=== PATIENT | female | born 1995 | race Caucasian/White ===

== ENCOUNTER 2018-04-20 16:06 | Emergency (ER) | payer OTHER ==
[2018-04-20] MEDS: IBUPROFEN 600 MG TAB PO (17:10)
[2018-04-20] MEDS: AMOXICILLIN 500 MG CAP PO (17:10)
[2018-04-20] MEDS: ACETAMINOPHEN 500 MG TAB PO (17:10)
[2018-04-20] MEDS: CEFTRIAXONE 250 MG INJ IM (17:27)
[2018-04-20] MEDS: AZITHROMYCIN 250 MG TAB PO (17:27)
[2018-04-20 17:43] LABS: URINE PH (Dip) POC 6.5 (5.0-8.5)
[2018-04-20 17:43] LABS: URINE BLOOD (Dip) POC Negative (NEGATIVE); URINE GLUCOSE (Dip) POC Negative (NEGATIVE); URINE KETONES (Dip) POC Trace (NEGATIVE); URINE LEUKOCYTE EST (Dip) POC Negative (NEGATIVE); URINE NITRITE (Dip) POC Negative (NEGATIVE); URINE TOTAL PROTEIN POC Trace (NEGATIVE)
== END 2018-04-20 17:45 | disposition home or self-care (01) ==
LOC: FTE 16:06
DX: J02.0 Streptococcal pharyngitis (principal); R50.9 Fever, unspecified; Z20.2 Contact with and (suspected) exposure to infections with a predominantly sexual mode of transmission
CPT/HCPCS: 81003; 87086; 87591; 96372; 99284-25

== ENCOUNTER 2018-04-25 13:44 | Emergency (ER) | payer OTHER ==
[2018-04-25] MEDS: DEXAMETHASONE 10 MG/ML 1 ML INJ IV (14:39)
[2018-04-25] MEDS: SOD CHLORIDE 0.9% 1,000 ML IV (14:39)
[2018-04-25] MEDS: KETOROLAC 30 MG INJ IV (14:43)
[2018-04-25 15:14] LABS: MONOTEST Negative (NEG)
[2018-04-25 15:44] LABS: ADD UMIC NO; UR ASCORBIC ACID NEGATIVE (NEGATIVE); UR BILIRUBIN (Dip) NEGATIVE (NEGATIVE); UR BLOOD (Dip) NEGATIVE (NEGATIVE); UR CLARITY SLIGHTLY CLOUDY (CLEAR); UR COLOR YELLOW (YELLOW); UR GLUCOSE (Dip) NEGATIVE (NEGATIVE); UR KETONES (Dip) NEGATIVE (NEGATIVE); UR LEUKOCYTE ESTERASE (Dip) NEGATIVE Leu/ul (NEGATIVE); UR NITRITE (Dip) NEGATIVE (NEGATIVE); UR RBC 0 /HPF (0-5); UR SPECIFIC GRAVITY (Dip) 1.018 (1.003-1.030); UR SQUAMOUS EPITHELIAL CELL MODERATE /HPF (FEW); UR TOTAL PROTEIN (Dip) NEGATIVE (NEGATIVE); UR UROBILINOGEN (Dip) NEGATIVE (NEGATIVE); UR WBC 1 /HPF (0-5)
[2018-04-25] MEDS: CLINDAMYCIN 600 MG/D5W (PMX) 50 ML IVPB (15:51)
== END 2018-04-25 16:36 | disposition home or self-care (01) ==
LOC: FTE 13:44
DX: J02.9 Acute pharyngitis, unspecified (principal); F17.210 Nicotine dependence, cigarettes, uncomplicated
CPT/HCPCS: 81001; 81003; 81025; 86308; 87880; 96361; 96365; 96375; 99284-25

== ENCOUNTER 2018-07-18 14:42 | Emergency (ER) | payer OTHER ==
[2018-07-18] MEDS: ACETAMINOPHEN 500 MG TAB PO (15:39)
[2018-07-18 15:47] LABS: ADD MAN DIFF? NO
[2018-07-18] MEDS: SOD CHLORIDE 0.9% 1,500 ML IV (15:47)
[2018-07-18 15:51] LABS: BASOPHILS % 0.4 % (0.0-2.0); EOSINOPHILS # 0.2 10^3/ul (0.0-0.5); EOSINOPHILS % 2.3 % (0.0-7.0); HEMATOCRIT 36.5 % (37.0-47.0); HEMOGLOBIN 11.9 g/dl (12.0-16.0); LYMPHOCYTES % 26.6 % (15.0-51.0); MEAN CORPUSCULAR HEMOGLOBIN 29.8 pg (29.0-33.0); MEAN CORPUSCULAR HGB CONC 32.6 g/dl (32.0-37.0); MEAN CORPUSCULAR VOLUME 91.3 fl (82.0-101.0); MEAN PLATELET VOLUME 10.1 fl (7.4-10.4); MONOCYTE # 0.6 10^3/ul (0.3-0.9); MONOCYTES % 8.6 % (0.0-11.0); NEUTROPHIL # 4.6 10^3/ul (1.6-7.5); NEUTROPHILS % 61.7 % (39.0-77.0); PLATELET COUNT 328 10^3/UL (140-415); RED CELL DISTRIBUTION WIDTH 13.9 % (11.5-14.5)
[2018-07-18 15:51] LABS: WHITE BLOOD COUNT 7.4 10^3/ul (4.8-10.8)
[2018-07-18 15:54] LABS: ADD UMIC YES; UR ASCORBIC ACID NEGATIVE (NEGATIVE); UR BILIRUBIN (Dip) NEGATIVE (NEGATIVE); UR BLOOD (Dip) NEGATIVE (NEGATIVE); UR CLARITY SLIGHTLY CLOUDY (CLEAR); UR COLOR YELLOW (YELLOW); UR GLUCOSE (Dip) NEGATIVE (NEGATIVE); UR KETONES (Dip) NEGATIVE (NEGATIVE); UR LEUKOCYTE ESTERASE (Dip) TRACE Leu/ul (NEGATIVE); UR MUCUS FEW /HPF (NONE SEEN); UR NITRITE (Dip) NEGATIVE (NEGATIVE); UR RBC 2 /HPF (0-5); UR SPECIFIC GRAVITY (Dip) 1.021 (1.003-1.030); UR SQUAMOUS EPITHELIAL CELL FEW /HPF (FEW); UR TOTAL PROTEIN (Dip) NEGATIVE (NEGATIVE); UR UROBILINOGEN (Dip) NEGATIVE (NEGATIVE); UR WBC 9 /HPF (0-5)
[2018-07-18 16:08] LABS: ALANINE AMINOTRANSFERASE 25 IU/L (13-69); ALBUMIN/GLOBULIN RATIO 1.29; ALKALINE PHOSPHATASE 51 IU/L (42-121); ANION GAP 9 (5-13); ASPARTATE AMINO TRANSFERASE 21 IU/L (15-46); BILIRUBIN,INDIRECT 0.5 mg/dl (0-1.1); BILIRUBIN,TOTAL 0.5 mg/dl (0.2-1.3); BLOOD UREA NITROGEN 13 mg/dl (7-20); CALCIUM 9.3 mg/dl (8.4-10.2); CARBON DIOXIDE 26 mmol/L (21-31); CHLORIDE 103 mmol/L (97-110); CREATININE 0.49 mg/dl (0.44-1.00); Estimated GFR > 60 mL/min (>60); GLUCOSE 78 mg/dl (70-220); LIPASE 74 U/L (23-300); POTASSIUM 4.2 mmol/L (3.5-5.1); SODIUM 138 mmol/L (135-144); TOTAL PROTEIN 7.1 g/dl (6.1-8.1)
[2018-07-18] MEDS: METOCLOPRAMIDE 10 MG INJ IV (16:09)
[2018-07-18 16:59] LABS: LACTIC ACID 1.3 mmol/L (0.5-2.0)
[2018-07-18] MEDS: CEPHALEXIN 500 MG CAP PO (17:03)
== END 2018-07-18 17:10 | disposition home or self-care (01) ==
LOC: FTE 14:42
DX: O23.91 Unspecified genitourinary tract infection in pregnancy, first trimester (principal); Z3A.01 Less than 8 weeks gestation of pregnancy
CPT/HCPCS: 36415; 76801; 76817; 80053; 81001; 81025; 83605; 83690; 84702; 85025; 87086; 96361; 96374; 99285-25

== ENCOUNTER 2018-07-21 17:49 | Emergency (ER) | payer OTHER ==
[2018-07-21] MEDS ORDERED: AZITHROMYCIN 500 MG TAB PO (18:30)
== END 2018-07-21 21:40 | disposition left against medical advice (07) ==
LOC: FTE 17:49
DX: A74.9 Chlamydial infection, unspecified (principal)
CPT/HCPCS: 99282; Z7502

== ENCOUNTER 2018-11-11 21:38 | Inpatient (IN) | payer OTHER ==
[2018-11-11 22:40] LABS: ADD UMIC YES; UR ASCORBIC ACID NEGATIVE (NEGATIVE); UR BACTERIA FEW /HPF (NONE SEEN); UR BILIRUBIN (Dip) NEGATIVE (NEGATIVE); UR BLOOD (Dip) 1+ mg/dL (NEGATIVE); UR CLARITY CLOUDY (CLEAR); UR COLOR YELLOW (YELLOW); UR GLUCOSE (Dip) NEGATIVE (NEGATIVE); UR KETONES (Dip) 1+ mg/dL (NEGATIVE); UR LEUKOCYTE ESTERASE (Dip) 3+ Leu/ul (NEGATIVE); UR MUCUS FEW /HPF (NONE SEEN); UR NITRITE (Dip) POSITIVE (NEGATIVE); UR RBC 14 /HPF (0-5); UR SPECIFIC GRAVITY (Dip) 1.015 (1.003-1.030); UR SQUAMOUS EPITHELIAL CELL FEW /HPF (FEW); UR TOTAL PROTEIN (Dip) 2+ mg/dl (NEGATIVE); UR TRANSITIONAL EPI CELL FEW /HPF (NONE SEEN); UR UROBILINOGEN (Dip) NEGATIVE (NEGATIVE); UR WBC > 182 /HPF (0-5)
[2018-11-11 22:46] LABS: BARBITURATES Negative (NEGATIVE); BENZODIAZEPINES Negative (NEGATIVE); CANNABINOIDS Positive (NEGATIVE); COCAINE Negative (NEGATIVE); OPIATES Negative (NEGATIVE)
[2018-11-11 23:02] LABS: AMPHETAMINE/METHAMPHETAMINE Positive (NEGATIVE)
[2018-11-11] MEDS: SOD CHLORIDE 0.9% 1,000 ML IV (23:19)
[2018-11-11] MEDS: CEFTRIAXONE 1 GM/50 ML (PMX) 50 ML IVPB (23:28)
[2018-11-11 23:40] LABS: ADD MAN DIFF? NO
[2018-11-11 23:43] LABS: WHITE BLOOD COUNT 17.3 10^3/ul (4.8-10.8)
[2018-11-11 23:43] LABS: BASOPHILS % 0.2 % (0.0-2.0); EOSINOPHILS % 0.2 % (0.0-7.0); HEMATOCRIT 31.2 % (37.0-47.0); HEMOGLOBIN 10.5 g/dl (12.0-16.0); LYMPHOCYTES # 1.3 10^3/ul (0.8-2.9); LYMPHOCYTES % 7.7 % (15.0-51.0); MEAN CORPUSCULAR HEMOGLOBIN 32.3 pg (29.0-33.0); MEAN CORPUSCULAR HGB CONC 33.7 g/dl (32.0-37.0); MEAN PLATELET VOLUME 9.6 fl (7.4-10.4); MONOCYTE # 1.2 10^3/ul (0.3-0.9); NEUTROPHIL # 14.6 10^3/ul (1.6-7.5); NEUTROPHILS % 84.4 % (39.0-77.0); PLATELET COUNT 262 10^3/UL (140-415); RED BLOOD COUNT 3.25 10^6/ul (4.20-5.40); RED CELL DISTRIBUTION WIDTH 12.9 % (11.5-14.5)
[2018-11-12 00:02] LABS: ALANINE AMINOTRANSFERASE 18 IU/L (13-69); ALBUMIN 2.8 g/dl (3.3-4.9); ALBUMIN/GLOBULIN RATIO 0.84; ALKALINE PHOSPHATASE 146 IU/L (42-121); ANION GAP 2 (5-13); ASPARTATE AMINO TRANSFERASE 24 IU/L (15-46); BILIRUBIN,INDIRECT 0.6 mg/dl (0-1.1); BILIRUBIN,TOTAL 0.6 mg/dl (0.2-1.3); BLOOD UREA NITROGEN 6 mg/dl (7-20); CALCIUM 8.6 mg/dl (8.4-10.2); CARBON DIOXIDE 27 mmol/L (21-31); CHLORIDE 102 mmol/L (97-110); CREATININE 0.41 mg/dl (0.44-1.00); Estimated GFR > 60 mL/min (>60); GLUCOSE 113 mg/dl (70-220); POTASSIUM 3.3 mmol/L (3.5-5.1); SODIUM 131 mmol/L (135-144); TOTAL PROTEIN 6.1 g/dl (6.1-8.1)
[2018-11-12] MEDS ORDERED: ONDANSETRON 4 MG INJ IV (00:30)
[2018-11-12] MEDS: ACETAMINOPHEN 325 MG TAB PO ×3 (00:36→15:10)
[2018-11-12] MEDS ORDERED: ALBUTEROL HFA 8 GM INHALER INH (01:00)
[2018-11-12] MEDS: SOD CHLORIDE 0.9% 1,000 ML IV ×2 (07:39→08:45)
[2018-11-12] MEDS: PRENATAL VITAMIN PO (08:54)
[2018-11-12 11:17] LABS: ADD MAN DIFF? NO
[2018-11-12 11:26] LABS: WHITE BLOOD COUNT 15.5 10^3/ul (4.8-10.8)
[2018-11-12 11:26] LABS: BASOPHILS % 0.1 % (0.0-2.0); EOSINOPHILS % 0.2 % (0.0-7.0); HEMATOCRIT 31.1 % (37.0-47.0); HEMOGLOBIN 10.1 g/dl (12.0-16.0); LYMPHOCYTES # 1.2 10^3/ul (0.8-2.9); LYMPHOCYTES % 7.8 % (15.0-51.0); MEAN CORPUSCULAR HEMOGLOBIN 31.5 pg (29.0-33.0); MEAN CORPUSCULAR HGB CONC 32.5 g/dl (32.0-37.0); MEAN CORPUSCULAR VOLUME 96.9 fl (82.0-101.0); MEAN PLATELET VOLUME 9.3 fl (7.4-10.4); MONOCYTE # 0.8 10^3/ul (0.3-0.9); MONOCYTES % 4.9 % (0.0-11.0); NEUTROPHIL # 13.4 10^3/ul (1.6-7.5); NEUTROPHILS % 86.4 % (39.0-77.0); PLATELET COUNT 249 10^3/UL (140-415); RED BLOOD COUNT 3.21 10^6/ul (4.20-5.40)
[2018-11-12 11:41] LABS: IRON 13 ug/dl (35-150)
[2018-11-12 11:51] LABS: % IRON SATURATION 4 % SAT (22-52); TOTAL IRON BINDING CAPACITY 324 ug/dl (241-421)
[2018-11-12] MEDS: POTASSIUM CHLORIDE (SR) 20 MEQ TAB PO (12:41)
[2018-11-13] MEDS: CEFTRIAXONE 1 GM/50 ML (PMX) 50 ML IVPB (00:08)
[2018-11-13] MEDS: SOD CHLORIDE 0.9% 1,000 ML IV ×4 (00:08→17:22)
[2018-11-13 05:54] LABS: ADD MAN DIFF? NO
[2018-11-13 06:36] LABS: WHITE BLOOD COUNT 14.1 10^3/ul (4.8-10.8)
[2018-11-13 06:36] LABS: BASOPHILS % 0.2 % (0.0-2.0); EOSINOPHILS # 0.1 10^3/ul (0.0-0.5); EOSINOPHILS % 0.8 % (0.0-7.0); HEMATOCRIT 31.1 % (37.0-47.0); HEMOGLOBIN 10.2 g/dl (12.0-16.0); LYMPHOCYTES # 1.7 10^3/ul (0.8-2.9); LYMPHOCYTES % 11.9 % (15.0-51.0); MEAN CORPUSCULAR HEMOGLOBIN 31.9 pg (29.0-33.0); MEAN CORPUSCULAR HGB CONC 32.8 g/dl (32.0-37.0); MEAN CORPUSCULAR VOLUME 97.2 fl (82.0-101.0); MEAN PLATELET VOLUME 9.9 fl (7.4-10.4); MONOCYTE # 1.3 10^3/ul (0.3-0.9); MONOCYTES % 8.9 % (0.0-11.0); NEUTROPHILS % 77.7 % (39.0-77.0); PLATELET COUNT 244 10^3/UL (140-415)
[2018-11-13] MEDS: POTASSIUM CHLORIDE (SR) 20 MEQ TAB PO (11:37)
[2018-11-13] MEDS: PRENATAL VITAMIN PO (11:37)
[2018-11-13] MEDS: ACETAMINOPHEN 325 MG TAB PO (18:38)
[2018-11-14] MEDS: CEFTRIAXONE 1 GM/50 ML (PMX) 50 ML IVPB ×2 (00:29→17:00)
[2018-11-14] MEDS: SOD CHLORIDE 0.9% 1,000 ML IV ×2 (00:30→11:02)
[2018-11-14] MEDS: ACETAMINOPHEN 325 MG TAB PO (03:32)
[2018-11-14] MEDS: SENNA TAB PO (03:32)
[2018-11-14] MEDS: PRENATAL VITAMIN PO (11:01)
[2018-11-14] MEDS: POTASSIUM CHLORIDE (SR) 20 MEQ TAB PO (11:06)
== END 2018-11-14 18:30 | disposition home or self-care (01) | DRG 832 ==
LOC: OBT 21:38 → L-D 21:38
DX: O23.02 Infections of kidney in pregnancy, second trimester (principal); O99.322 Drug use complicating pregnancy, second trimester; B96.20 Unspecified Escherichia coli [E. coli] as the cause of diseases classified elsewhere; O99.012 Anemia complicating pregnancy, second trimester; D50.9 Iron deficiency anemia, unspecified; F15.10 Other stimulant abuse, uncomplicated; F12.10 Cannabis abuse, uncomplicated; O99.332 Smoking (tobacco) complicating pregnancy, second trimester; F17.200 Nicotine dependence, unspecified, uncomplicated; Z3A.20 20 weeks gestation of pregnancy
CPT/HCPCS: 36415; 76700; 76815; 76817; 76856; 80053; 80307; 81001; 83540; 85025; 87086; 87591; 96360; 96366